=== PATIENT | male | born 1945 | race Caucasian/White ===

== ENCOUNTER 2020-12-12 12:50 | Emergency (ER) | payer OTHER ==
[2020-12-12] MEDS ORDERED: TETANUS & DIPHTHERIA TOX,ADULT 0.5 ML VIAL ONE (14:07)
[2020-12-12] MEDS ORDERED: HYDROCODONE/APAP 7.5/325 MG TAB ONE (14:08)
[2020-12-12] MEDS ORDERED: BUPIVACAINE 0.5% PF 10 ML VIAL ONE (14:08)
[2020-12-12] MEDS ORDERED: LIDOCAINE 1% W/EPI 1:100,000 MDV 20 ML VIAL ONE (14:08)
--- NOTE | 2020-12-12 14:20 | RAD REPORT ---
EXAM DESCRIPTION: RAD - Humerus Left - 12/12/2020 2:03 pm CLINICAL HISTORY: PAIN COMPARISON: No comparisons FINDINGS: No acute fracture or dislocation is seen. No aggressive marrow lesion. No radiopaque forei gn body evident.
--- NOTE | 2020-12-12 14:36 | EDPHYS ---
Physician Documentation [facility] Name: Galo Carter Age: 75 yrs Sex: Male : 1945 Arrival Date: 12/12/2020 Time: 12:50 Bed 25 Private MD: ED Physician Villa Campos HPI: 12/12 13:25 This 75 yrs old Male presents to ER via Ambulatory with complaints of cp Laceration To Arm. 13:25 The patient has a laceration occurred at home, using grinding saw to repair pipes in cp ceiling. The laceration(s) is(are) located on the left bicep. Onset: The symptoms/episode began/occurred just prior to arrival. Associated signs and symptoms: Pertinent negatives: dizziness, heavy bleeding, loss of consciousness, numbness distal to injury. Historical: - Allergies: 13:01 floroquinolones; ca1 - PMHx: 13:01 Diabetes - NIDDM; Hypertension; ca1 - PSHx: 13:01 None; ca1 - Immunization history:: Last tetanus immunization: unknown. - Social history:: Smoking status: Patient/guardian denies using tobacco, the patient reports quitting approximately 25 years ago. ROS: 13:30 Skin: Positive for laceration(s), of the left bicep. cp 13:30 Eyes: Negative for injury, pain, redness, and discharge. cp 13:30 Constitutional: Negative for fever, poor PO intake. 13:30 Cardiovascular: Negative for chest pain. 13:30 Respiratory: Negative for cough, shortness of breath, wheezing. 13:30 Neuro: Negative for altered mental status, dizziness, headache, loss of consciousness, weakness. 13:30 All other systems are negative. Exam: 13:33 Constitutional: The patient appears in no acute distress, alert, awake, well developed, cp well nourished, uncomfortable. 13:33 Head/Face: Normocephalic, atraumatic. cp 13:33 Chest/axilla: Inspection: normal, Palpation: is normal, no crepitus, no tenderness. 13:33 Cardiovascular: Rate: normal, Rhythm: regular, Pulses: Pulses are 2+ in right radial artery and left radial artery. 13:33 Respiratory: the patient does not display signs of respiratory distress, Respirations: normal, no use of accessory muscles, no retractions, labored breathing, is not present. 13:33 Musculoskeletal/extremity: ROM: full active range of motion, in the left upper arm, Sensation intact. 13:33 Skin: injury, laceration(s), the wound is approximately 6 cm(s), of the left bicep, that can be described as clean, no foreign body, linear, with mild bleeding. Vital Signs: 12:58 BP 150 / 79; Pulse 94; Resp 18 S; Temp 98.3; Pulse Ox 98% ; Weight 90.72 kg (R); Height ca1 5 ft. 11 in. (180.34 cm); Pain 3/10; 13:40 BP 124 / 65; Pulse 85; Resp 18; Pulse Ox 94% on R/A; Pain 4/10; kg 14:40 BP 124 / 80; Pulse 92; Resp 18; Pulse Ox 97% on R/A; Pain 1/10; kg 12:58 Body Mass Index 27.89 (90.72 kg, 180.34 cm) ca1 Laceration: 14:35 Wound Repair of 6cm ( 2.4in ) subcutaneous laceration to left upper arm. Linear cp shaped.. Distal neuro/vascular/tendon intact. Anesthesia: Local anesthetic administered with 10 mls of Lido/Bicarb. Wound prep: Moderate cleansing by me, Wound irrigation by me. Skin closed with 1 4-0 Prolene using running sutures and sterile technique. Fascia closed with 1 4-0 Vicryl using running sutures and sterile technique. Dressed with Bacitracin, 4x4's. Patient tolerated well. MDM: 13:13 Patient medically screened. cp 14:35 Data reviewed: vital signs, nurses notes, radiologic studies, plain films. cp 14:35 Differential diagnosis: superficial laceration, tendon injury, open fracture. Test cp interpretation: by ED physician or midlevel provider: plain radiologic studies. Counseling: I had a detailed discussion with the patient and/or guardian regarding: the historical points, exam findings, and any diagnostic results supporting the discharge/admit diagnosis, radiology results, to return to the emergency department if symptoms worsen or persist or if there are any questions or concerns that arise at home. Response to treatment: the patient's symptoms have markedly improved after treatment, and as a result, I will discharge patient. 12/12 13:20 Order name: XRAY Humerus LEFT; Complete Time: 14:32 cp 12/12 14:32 Interpretation: Report reviewed. 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 Exp: kg 12/05/2021. Lot #: [id number]. } Route: IM; Site: right deltoid; 13:57 Drug: Marcaine (bupivacaine) (0.5 %) 10 ml Volume: 10 ml; Route: Infiltration; kg 14:20 Follow up: Response: Pain is decreased kg 13:57 Drug: Hydrocodone-Acetaminophen (7.5 mg-325 mg) 1 tabs Route: PO; kg 14:20 Follow up: Response: Pain is decreased kg 13:58 Drug: Lidocaine-Epinephrine -1%: (1:100,000) 10 ml Volume: 20 ml; Route: Infiltration; kg Disposition: 18:22 Co-signature as Attending Physician, Villa Campos MD. rn Disposition: 12/12/20 14:35 Discharged to Home. Impression: Laceration without foreign body of upper arm - left. - Condition is Stable. - Discharge Instructions: Laceration Care, Adult. - Prescriptions for Naprosyn 500 mg Oral Tablet - take 1 tablet by ORAL route 2 times per day take with food; 20 tablet. - Medication Reconciliation Form, Thank You Letter, Antibiotic Education, Prescription Opioid Use form. - Follow up: Private Physician; When: 10 - 14 days; Reason: Staple/Suture removal. - Problem is new. - Symptoms have improved. Signatures: Dispatcher [employer] EDVilla Hunt MD MD rn Tomas Tariq PA PA cp Acob, Cheryl RN Nancy Johnson kg Corrections: (The following items were deleted from the chart) 15:36 14:35 12/12/2020 14:35 Discharged to Home. Impression: Laceration without foreign body kg of upper arm - left. Condition is Stable. Forms are Medication Reconciliation Form, Thank You Letter, Antibiotic Education, Prescription Opioid Use. Follow up: Private Physician; When: 10 - 14 days; Reason: Staple/Suture removal. Problem is new. Symptoms have improved. cp 23:50 14:35 Wound Repair of 6cm ( 2.4in ) subcutaneous laceration to left upper arm. Linear cp shaped.. Distal neuro/vascular/tendon intact. Anesthesia: Local anesthetic administered with 10 mls of Lido/Bicarb. Wound prep: Moderate cleansing by me, Wound irrigation by me. Skin closed with 1 4-0 Prolene using running sutures and sterile technique. Dressed with Bacitracin, 4x4's. Patient tolerated well. cp
--- NOTE | 2020-12-12 14:36 | ER ---
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 ca1 Bleeding controlled. Coronavirus screen: Client denies travel out of the [place] in the last 14 days. At this time, the client does not indicate any symptoms associated with coronavirus-19. Ebola Screen: Patient negative for fever greater than or equal to 101.5 degrees Fahrenheit, and additional compatible Ebola Virus Disease symptoms Patient denies exposure to infectious person. Patient denies travel to an Ebola-affected area in the 21 days before illness onset. No symptoms or risks identified at this time. Complicating Factors: There are no complicating factors for this patient. Initial Sepsis Screen: Does the patient meet any 2 criteria? No. Patient's initial sepsis screen is negative. Does the patient have a suspected source of infection? No. Patient's initial sepsis screen is negative. Risk Assessment: Do you want to hurt yourself or someone else? Patient reports no desire to harm self or others. Onset of symptoms was December 12, 2020. 12:58 Method Of Arrival: Ambulatory ca1 12:58 Acuity: TERESO 4 ca1 12:58 Acuity: TERESO 4 ca1 Historical: - Allergies: 13:01 floroquinolones; ca1 - PMHx: 13:01 Diabetes - NIDDM; Hypertension; ca1 - PSHx: 13:01 None; ca1 - Immunization history:: Last tetanus immunization: unknown. - Social history:: Smoking status: Patient/guardian denies using tobacco, the patient reports quitting approximately 25 years ago. Screenin:30 Fall Risk None identified. kg 15:32 Abuse screen: Denies threats or abuse. Nutritional screening: No deficits noted. kg Tuberculosis screening: No symptoms or risk factors identified. Assessment: 13:30 General: Appears in no apparent distress. Behavior is calm, cooperative, quiet. Pain: kg Complains of pain in left bicep Pain currently is 4 out of 10 on a pain scale. Quality of pain is described as aching, tender, numb. Neuro: No deficits noted. Cardiovascular: No deficits noted. Respiratory: No deficits noted. GI: No deficits noted. : No deficits noted. EENT: No deficits noted. Derm: No deficits noted. Derm: Skin Skin is dry, Skin is pink, Skin temperature is warm Wound noted left bicep Wound is open laceration, with slight oozing sanguineous draining. 15:33 Injury Description: Laceration is clean. kg 15:34 Musculoskeletal: No deficits noted. kg Vital Signs: 12:58 BP 150 / 79; Pulse 94; Resp 18 S; Temp 98.3; Pulse Ox 98% ; Weight 90.72 kg (R); Height ca1 5 ft. 11 in. (180.34 cm); Pain 3/10; 13:40 BP 124 / 65; Pulse 85; Resp 18; Pulse Ox 94% on R/A; Pain 4/10; kg 14:40 BP 124 / 80; Pulse 92; Resp 18; Pulse Ox 97% on R/A; Pain 1/10; kg 12:58 Body Mass Index 27.89 (90.72 kg, 180.34 cm) ca1 ED Course: 12:50 Patient arrived in ED. as 13:00 Triage completed. ca1 13:01 Arm band placed on right wrist. ca1 13:10 Tomas Tariq PA is PHCP. cp 13:10 Villa Campos MD is Attending Physician. cp 13:14 Nancy Cheng is Primary Nurse. kg 14:03 XRAY Humerus LEFT In Process Unspecified. EDMS 15:34 Patient has correct armband on for positive identification. Bed in low position. Call kg light in reach. Side rails up X 1. 15:34 Patient did not have IV access during this emergency room visit. kg 15:34 No provider procedures requiring assistance completed. 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 Exp: kg 12/05/2021. Lot #: [id number]. } Route: IM; Site: right deltoid; 13:57 Drug: Marcaine (bupivacaine) (0.5 %) 10 ml Volume: 10 ml; Route: Infiltration; kg 14:20 Follow up: Response: Pain is decreased kg 13:57 Drug: Hydrocodone-Acetaminophen (7.5 mg-325 mg) 1 tabs Route: PO; kg 14:20 Follow up: Response: Pain is decreased kg 13:58 Drug: Lidocaine-Epinephrine -1%: (1:100,000) 10 ml Volume: 20 ml; Route: Infiltration; kg Outcome: 14:35 Discharge ordered by . cp 15:35 Discharged to home ambulatory. kg 15:35 Condition: improved 15:35 Discharge instructions given to patient, family, Instructed on discharge instructions, follow up and referral plans. Demonstrated understanding of instructions, follow-up care, medications, wound care, Prescriptions given X 1. 15:36 Patient left the ED. kg Signatures: Dispatcher [employer] EDMS Anastasia Richardson Corey, PA PA cp Acob, Cheryl, RN RN Nancy Lechuga kg
[2020-12-12 15:43] VITALS: TEMP 98.3
[2020-12-12 15:46] VITALS: BP 124/80; O2SAT 97
== END 2020-12-12 15:36 | disposition home or self-care (01) ==
LOC: ER 12:50
PROC: 0JQF0ZZ Repair Left Upper Arm Subcutaneous Tissue and Fascia, Open Approach (ICD-10-PCS; principal; 2020-12-12)
DX: S41.112A Laceration without foreign body of left upper arm, initial encounter (principal); Z23 Encounter for immunization; E11.9 Type 2 diabetes mellitus without complications; I10 Essential (primary) hypertension; W29.8XXA Contact with other powered hand tools and household machinery, initial encounter; Z87.891 Personal history of nicotine dependence
CPT/HCPCS: 90471; 90714; 99283